=== PATIENT | male | born 1955 | race Caucasian/White ===

== ENCOUNTER → 2019-12-23 | Outpatient (CLI) | payer MEDICARE ==
[2019-12-23 12:18] LABS: ABSOLUTE EOSINOPHILS # (AUTO) 0.1 10^3/uL (0.0-0.6); ABSOLUTE LYMPHOCYTES (AUTO) 1.7 10^3/uL (0.5-4.7); ABSOLUTE MONOCYTES (AUTO) 0.9 10^3/uL (0.1-1.4); ABSOLUTE NEUT (AUTO) 4.9 10^3/uL (1.7-8.2); BASOPHILS % (AUTO) 0.4 % (0-2); EOSINOPHILS % (AUTO) 1.4 % (0-6); HEMATOCRIT 42.6 % (37.9-51.0); HEMOGLOBIN 14.8 g/dL (13.5-17.0); LYMPHOCYTES % (AUTO) 22.6 % (13-45); MEAN CORPUSCULAR HEMOGLOBIN 30.9 pg (27.0-33.4); MEAN CORPUSCULAR HGB CONC 34.6 g/dL (32.0-36.0); MEAN CORPUSCULAR VOLUME 89 fl (80-97); MONOCYTES % (AUTO) 11.3 % (3-13); PLATELET COUNT 219 10^3/uL (150-450); RED BLOOD COUNT 4.78 10^6/uL (4.35-5.55); RED CELL DISTRIBUTION WIDTH 13.7 % (11.5-14.0); SEGMENTED NEUTROPHILS % (AUTO) 64.3 % (42-78); TOTAL CELLS COUNTED % (AUTO) 100 %; WHITE BLOOD COUNT 7.6 10^3/uL (4.0-10.5)
[2019-12-23 12:49] LABS: ALBUMIN 4.3 g/dL (3.5-5.0); ALKALINE PHOSPHATASE 100 U/L (38-126); ANION GAP 11 (5-19); ASPARTATE AMINO TRANSFERASE 34 U/L (17-59); BILIRUBIN,DIRECT 0.4 mg/dL (0.0-0.4); BILIRUBIN,TOTAL 0.8 mg/dL (0.2-1.3); BLOOD UREA NITROGEN 16 mg/dL (7-20); C-REACTIVE PROTEIN 5.2 mg/L (<10.0); CALCIUM 9.5 mg/dL (8.4-10.2); CARBON DIOXIDE 29 mmol/L (22-30); CHLORIDE 101 mmol/L (98-107); GLUCOSE 97 mg/dL (75-110); POTASSIUM 4.8 mmol/L (3.6-5.0); TOTAL PROTEIN 7.9 g/dL (6.3-8.2)
[2019-12-23 12:57] LABS: ERYTHROCYTE SEDIMENTATION RATE 29 mm/hr (0-20)
--- NOTE | 2019-12-23 14:02 | RADIOLOGY REPORT (SQ) ---
EXAM DESCRIPTION: FOOT LEFT COMPLETE IMAGES COMPLETED DATE/TIME: 12/23/2019 1:44 pm REASON FOR STUDY: NON-PRS CHRONIC ULCER OTH PRT LEFT FOOT W FAT LAYER EXPOSED L97.522 NON-PRS CHRON IC ULCER OTH PRT LEFT FOOT W FAT LAYER COMPARISON: None. NUMBER OF VIEWS: Three views. TECHNIQUE: AP, lateral and oblique radiographic images acquired of the left foot. LIMITATIONS: None. FINDINGS: MINERALIZATION: Normal. BONES: No acute fracture or dislocation. No worrisome bone lesions. No evidence of osteomyelitis. JOINTS: No effusions. SOFT TISSUES: Soft tissue swelling adjacent to the 5th metatarsal-phalangeal joint. Soft tissue woun d. OTHER: No other significant finding. IMPRESSION: Soft tissue wound. No evidence of osteomyelitis. TECHNICAL DOCUMENTATION: JOB ID: [id number] 2010 [employer]- All Rights Reserved Reading location - IP/workstation name: [email or web address]
== END ==
LOC: OD 11:17
PROVIDERS: ATTEND Preventive Medicine Undersea and Hyperbaric Medicine
DX: L97.522 Non-pressure chronic ulcer of other part of left foot with fat layer exposed (principal)
CPT/HCPCS: 36415; 80053; 85025; 85652; 86140

== ENCOUNTER → 2020-01-05 | Outpatient (CLI) | payer MEDICARE ==
--- NOTE | 2020-01-06 13:59 | RADIOLOGY REPORT (SQ) ---
EXAM DESCRIPTION: ARTERIAL LOWER EXTREM BILAT IMAGES COMPLETED DATE/TIME: 01/05/2020 4:02 pm REASON FOR STUDY: LT FOOT ULCER L97.522 NON-PRS CHRONIC ULCER OTH PRT LEFT FOOT W FAT LAYER COMPARISON: None. TECHNIQUE: Dynamic and static forde scale and color images acquired of the lower extremity arteries. Additional selected spectral images recorded. ABIs recorded. LIMITATIONS: None. FINDINGS: RIGHT LEG: ABIS: Normal, over 1.0. INFLOW ARTERIES: Not imaged. FEMORAL ARTERIES:Multiphasic waveforms. Normal, no velocity elevation to suggest focal stenosis. Norm al color Doppler evaluation. No aneurysm. POPLITEAL ARTERY:Multiphasic waveforms. Normal, no velocity elevation to suggest focal stenosis. Norm al color Doppler evaluation. No aneurysm. PATENT TIBIOPERONEAL TRUNK AND 3 VESSEL RUNOFF: Yes, normal vessels. TBI: Not performed. OTHER: No other significant finding. LEFT LEG: ABIS: Normal, over 1.0. INFLOW ARTERIES: Not imaged. FEMORAL ARTERIES:Multiphasic waveforms. Normal, no velocity elevation to suggest focal stenosis. Norm al color Doppler evaluation. No aneurysm. POPLITEAL ARTERY:Multiphasic waveforms. Normal, no velocity elevation to suggest focal stenosis. Norm al color Doppler evaluation. No aneurysm. PATENT TIBIOPERONEAL TRUNK AND 3 VESSEL RUNOFF: Yes, normal vessels. TBI: Not performed. OTHER: No other significant finding. IMPRESSION: NORMAL BILATERAL LOWER EXTREMITY ARTERIAL DOPPLER WITH ABIs. COMMENT: [facility] NORMAL: Greater than 1.0 MINIMAL DISEASE: 0.9 to 1.0 CLAUDICATION: 0.5 to 0.9 SEVERE ARTERIAL DISEASE: Less than 0.5 [facility] NORMAL: Greater than 1.0 (1.2 If Heavy Calcifications) NORMAL TO MILD ISCHEMIA: 0.8 to 1.0 MODERATE ISCHEMIA: 0.4 to 0.8 SEVERE ISCHEMIA: Less than 0.4 TECHNICAL DOCUMENTATION: JOB ID: [id number] 2010 [employer]- All Rights Reserved Reading location - IP/workstation name: [email or web address]
== END ==
LOC: SP 14:45
PROVIDERS: ATTEND Preventive Medicine Undersea and Hyperbaric Medicine
DX: L97.522 Non-pressure chronic ulcer of other part of left foot with fat layer exposed (principal)
CPT/HCPCS: 93922; 93925

== ENCOUNTER → 2020-02-14 | Outpatient (CLI) | payer MEDICARE ==
[2020-02-14 17:40] LABS: ABSOLUTE BASOPHILS # (AUTO) 0.1 10^3/uL (0.0-0.2); ABSOLUTE EOSINOPHILS # (AUTO) 0.1 10^3/uL (0.0-0.6); ABSOLUTE LYMPHOCYTES (AUTO) 1.7 10^3/uL (0.5-4.7); ABSOLUTE MONOCYTES (AUTO) 1.6 10^3/uL (0.1-1.4); ABSOLUTE NEUT (AUTO) 9.7 10^3/uL (1.7-8.2); BASOPHILS % (AUTO) 0.5 % (0-2); EOSINOPHILS % (AUTO) 0.8 % (0-6); HEMATOCRIT 39.6 % (37.9-51.0); HEMOGLOBIN 13.7 g/dL (13.5-17.0); LYMPHOCYTES % (AUTO) 12.7 % (13-45); MEAN CORPUSCULAR HEMOGLOBIN 30.5 pg (27.0-33.4); MEAN CORPUSCULAR HGB CONC 34.5 g/dL (32.0-36.0); MEAN CORPUSCULAR VOLUME 88 fl (80-97); PLATELET COUNT 234 10^3/uL (150-450); RED BLOOD COUNT 4.48 10^6/uL (4.35-5.55); RED CELL DISTRIBUTION WIDTH 13.8 % (11.5-14.0); TOTAL CELLS COUNTED % (AUTO) 100 %; WHITE BLOOD COUNT 13.1 10^3/uL (4.0-10.5)
[2020-02-14 18:04] LABS: ALBUMIN 4.2 g/dL (3.5-5.0); ALKALINE PHOSPHATASE 77 U/L (38-126); ANION GAP 10 (5-19); ASPARTATE AMINO TRANSFERASE 22 U/L (17-59); BILIRUBIN,DIRECT 0.3 mg/dL (0.0-0.4); BLOOD UREA NITROGEN 20 mg/dL (7-20); C-REACTIVE PROTEIN 52.3 mg/L (<10.0); CALCIUM 9.7 mg/dL (8.4-10.2); CARBON DIOXIDE 30 mmol/L (22-30); CHLORIDE 99 mmol/L (98-107); GLUCOSE 115 mg/dL (75-110); POTASSIUM 4.5 mmol/L (3.6-5.0); TOTAL PROTEIN 7.7 g/dL (6.3-8.2)
[2020-02-14 18:28] LABS: ERYTHROCYTE SEDIMENTATION RATE 56 mm/hr (0-20)
--- NOTE | 2020-02-15 10:29 | RADIOLOGY REPORT (SQ) ---
EXAM DESCRIPTION: FOOT LEFT COMPLETE IMAGES COMPLETED DATE/TIME: 02/14/2020 5:26 pm REASON FOR STUDY: NON-PRS CHRONIC ULCER OTH PRT LEFT FOOT W NECROSIS OF MUSCLE L97.523 NON-PRS [employer] SAM ULCER OTH PRT LEFT FOOT W NECROSIS O COMPARISON: AP, oblique and lateral views of the left foot from 12/23/2019. NUMBER OF VIEWS: Three views. TECHNIQUE: AP, lateral and oblique radiographic images acquired of the left foot. LIMITATIONS: Evaluation is limited by the overlying bandage or soft cast material. FINDINGS: MINERALIZATION: Normal. BONES: There is a soft tissue defect adjacent to the 5th MTP joint; there is no associated erosion or periosteal formation. The 1st MTP joint is narrowed and on the oblique view there is a periarticula r cortical defect on the medial side of the distal 1st metatarsal that is unchanged. There is no acu te fracture. JOINTS: The normal tarsometatarsal alignment is preserved. SOFT TISSUES: See above. OTHER: No other findings. IMPRESSION: Soft tissue defect adjacent to the 5th MTP joint without associated erosion, periosteal formation or other radiographic evidence of an acute osteomyelitis. TECHNICAL DOCUMENTATION: JOB ID: [id number] 2010 [employer]- All Rights Reserved Reading location - IP/workstation name: [email or web address]
== END ==
LOC: WC 16:42
PROVIDERS: ATTEND Preventive Medicine Undersea and Hyperbaric Medicine
DX: L97.523 Non-pressure chronic ulcer of other part of left foot with necrosis of muscle (principal)
CPT/HCPCS: 36415; 80053; 85025; 85652; 86140

== ENCOUNTER → 2020-02-17 | Outpatient (CLI) | payer MEDICARE | LOC: WC 11:24 | PROVIDERS: ATTEND Preventive Medicine Undersea and Hyperbaric Medicine | DX: M10.9 Gout, unspecified (principal) | CPT/HCPCS: 36415; 84550 ==

== ENCOUNTER → 2020-02-18 | Outpatient (CLI) | payer MEDICARE ==
--- NOTE | 2020-02-19 14:11 | RADIOLOGY REPORT (SQ) ---
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 TECHNIQUE: Multiplanar imaging of the left forefoot to include T1-weighted, postcontrast T1-weighted , and T2-weighted images. CONTRAST TYPE AND DOSE: 20 mL Prohance. RENAL FUNCTION: Not indicated. ACR Type II contrast agent associated with few, if any, unconfounded cases of NSF LIMITATIONS: None. FINDINGS: BONE MARROW: Mild marrow edema throughout the shaft of the 5th metatarsal and in the proxi mal phalanx of the pinky toe. Fracture through the base of the pinky toe is not entirely excluded al meka its dorsal aspect. There is slight dorsal subluxation of the MP joint here. No aggressive erosi ons. Post gadolinium sequences show mild enhancement throughout the areas of marrow edema. Mild mar row edema in the proximal phalanx great toe. Minimal erosion along the plantar periarticular cortex is not excluded. SOFT TISSUES: Extensive skin thickening along the 5th MP joint with apparent skin defect consistent w ith wound and probable regional gas. No drainable abscess detected. No gross tendon disruption appr eciated. OTHER: No other significant finding. IMPRESSION: 1. Abnormal marrow edema as described. Mild base of 5th proximal phalanx pinky fracture is not exclu ded with slight dorsal subluxation. Otherwise, there is extensive regional soft tissue thickening an d inflammatory change but no drainable abscess. TECHNICAL DOCUMENTATION: JOB ID: [id number] 2010 [employer]- All Rights Reserved Reading location - IP/workstation name: [email or web address]
== END ==
LOC: RAD 16:23
PROVIDERS: ATTEND Preventive Medicine Undersea and Hyperbaric Medicine
DX: M10.072 Idiopathic gout, left ankle and foot (principal)
CPT/HCPCS: 73720; A9576

== ENCOUNTER → 2020-03-27 | Outpatient (CLI) | payer MEDICARE ==
[2020-03-27 15:24] LABS: ABSOLUTE BASOPHILS # (AUTO) 0.1 10^3/uL (0.0-0.2); ABSOLUTE EOSINOPHILS # (AUTO) 0.1 10^3/uL (0.0-0.6); ABSOLUTE LYMPHOCYTES (AUTO) 2.1 10^3/uL (0.5-4.7); ABSOLUTE MONOCYTES (AUTO) 0.8 10^3/uL (0.1-1.4); ABSOLUTE NEUT (AUTO) 7.6 10^3/uL (1.7-8.2); BASOPHILS % (AUTO) 0.6 % (0-2); EOSINOPHILS % (AUTO) 1.1 % (0-6); HEMATOCRIT 40.9 % (37.9-51.0); HEMOGLOBIN 14.4 g/dL (13.5-17.0); LYMPHOCYTES % (AUTO) 19.5 % (13-45); MEAN CORPUSCULAR HEMOGLOBIN 30.5 pg (27.0-33.4); MEAN CORPUSCULAR HGB CONC 35.2 g/dL (32.0-36.0); MEAN CORPUSCULAR VOLUME 87 fl (80-97); MONOCYTES % (AUTO) 7.7 % (3-13); PLATELET COUNT 230 10^3/uL (150-450); RED BLOOD COUNT 4.73 10^6/uL (4.35-5.55); RED CELL DISTRIBUTION WIDTH 13.3 % (11.5-14.0); SEGMENTED NEUTROPHILS % (AUTO) 71.1 % (42-78); TOTAL CELLS COUNTED % (AUTO) 100 %; WHITE BLOOD COUNT 10.7 10^3/uL (4.0-10.5)
--- NOTE | 2020-03-27 15:39 | RADIOLOGY REPORT (SQ) ---
EXAM DESCRIPTION: FOOT LEFT COMPLETE IMAGES COMPLETED DATE/TIME: 03/27/2020 3:05 pm REASON FOR STUDY: NON-PRS CHRONIC ULCER OTH PRT LEFT FOOT W FAT LAYER EXPOSED L97.522 NON-PRS CHRON IC ULCER OTH PRT LEFT FOOT W FAT LAYER COMPARISON: 02/14/2020 NUMBER OF VIEWS: Three views. TECHNIQUE: AP, lateral and oblique radiographic images acquired of the left foot. LIMITATIONS: None. FINDINGS: MINERALIZATION: Decreased mineralization. BONES: Interval cortical disruption along the lateral aspect of the distal 5th metatarsal from prior exam. No displaced fracture. Subluxation/dislocation at the 5th MTP joint. There is dorsal and med ial displacement of the proximal phalanx in relation to the distal metatarsal. There are multiple ad ditional degenerative changes with osteophytosis, joint space loss and subchondral sclerosis at scatt ered interphalangeal joints and the 1st MTP joint. Dorsal midfoot osteophytosis. JOINTS: As above. SOFT TISSUES: Soft tissue swelling about the lateral forefoot. Ulceration along the plantar lateral forefoot. OTHER: No other significant finding. IMPRESSION: 1. Interval cortical disruption along the distal 5th metatarsal compatible with osteomy elitis. 2. Subluxation/dislocation at the 5th MTP joint. Dorsal and medial displacement of the proximal pha lanx in relation to the distal 5th metatarsal. 3. Soft tissue swelling and ulceration along the lateral forefoot. TECHNICAL DOCUMENTATION: JOB ID: [id number] [employer]- All Rights Reserved Reading location - IP/workstation name: [id number]
[2020-03-27 15:50] LABS: ALKALINE PHOSPHATASE 75 U/L (38-126); ANION GAP 9 (5-19); ASPARTATE AMINO TRANSFERASE 39 U/L (17-59); BILIRUBIN,DIRECT 0.2 mg/dL (0.0-0.4); BILIRUBIN,TOTAL 0.6 mg/dL (0.2-1.3); BLOOD UREA NITROGEN 19 mg/dL (7-20); CALCIUM 9.5 mg/dL (8.4-10.2); CARBON DIOXIDE 29 mmol/L (22-30); CHLORIDE 102 mmol/L (98-107); GLUCOSE 103 mg/dL (75-110); POTASSIUM 4.5 mmol/L (3.6-5.0); TOTAL PROTEIN 7.3 g/dL (6.3-8.2)
[2020-03-27 15:54] LABS: C-REACTIVE PROTEIN < 5.0 mg/L (<10.0)
[2020-03-27 16:00] LABS: ERYTHROCYTE SEDIMENTATION RATE 26 mm/hr (0-20)
== END ==
LOC: RAD 14:41
PROVIDERS: ATTEND Preventive Medicine Undersea and Hyperbaric Medicine
DX: M86.072 Acute hematogenous osteomyelitis, left ankle and foot (principal); L97.522 Non-pressure chronic ulcer of other part of left foot with fat layer exposed
CPT/HCPCS: 36415; 80053; 85025; 85652; 86140

== ENCOUNTER → 2020-04-28 | Outpatient (CLI) | payer MEDICARE ==
[2020-04-28 14:42] LABS: ABSOLUTE BASOPHILS # (AUTO) 0.1 10^3/uL (0.0-0.2); ABSOLUTE EOSINOPHILS # (AUTO) 0.2 10^3/uL (0.0-0.6); ABSOLUTE LYMPHOCYTES (AUTO) 2.2 10^3/uL (0.5-4.7); ABSOLUTE MONOCYTES (AUTO) 1.1 10^3/uL (0.1-1.4); ABSOLUTE NEUT (AUTO) 5.9 10^3/uL (1.7-8.2); BASOPHILS % (AUTO) 0.6 % (0-2); EOSINOPHILS % (AUTO) 1.8 % (0-6); HEMATOCRIT 39.5 % (37.9-51.0); HEMOGLOBIN 13.3 g/dL (13.5-17.0); LYMPHOCYTES % (AUTO) 23.7 % (13-45); MEAN CORPUSCULAR HEMOGLOBIN 29.4 pg (27.0-33.4); MEAN CORPUSCULAR HGB CONC 33.6 g/dL (32.0-36.0); MEAN CORPUSCULAR VOLUME 88 fl (80-97); MONOCYTES % (AUTO) 11.7 % (3-13); PLATELET COUNT 210 10^3/uL (150-450); RED BLOOD COUNT 4.51 10^6/uL (4.35-5.55); SEGMENTED NEUTROPHILS % (AUTO) 62.2 % (42-78); TOTAL CELLS COUNTED % (AUTO) 100 %; WHITE BLOOD COUNT 9.5 10^3/uL (4.0-10.5)
[2020-04-28 15:09] LABS: ALBUMIN 3.7 g/dL (3.5-5.0); ALKALINE PHOSPHATASE 80 U/L (38-126); ANION GAP 7 (5-19); ASPARTATE AMINO TRANSFERASE 30 U/L (17-59); BILIRUBIN,DIRECT 0.2 mg/dL (0.0-0.4); BILIRUBIN,TOTAL 0.8 mg/dL (0.2-1.3); BLOOD UREA NITROGEN 17 mg/dL (7-20); C-REACTIVE PROTEIN 16.2 mg/L (<10.0); CALCIUM 9.1 mg/dL (8.4-10.2); CARBON DIOXIDE 28 mmol/L (22-30); CHLORIDE 101 mmol/L (98-107); GLUCOSE 99 mg/dL (75-110); POTASSIUM 4.5 mmol/L (3.6-5.0); TOTAL PROTEIN 6.9 g/dL (6.3-8.2)
[2020-04-28 15:18] LABS: ERYTHROCYTE SEDIMENTATION RATE 33 mm/hr (0-20)
--- NOTE | 2020-04-28 15:50 | RADIOLOGY REPORT (SQ) ---
EXAM DESCRIPTION: FOOT LEFT COMPLETE IMAGES COMPLETED DATE/TIME: 04/28/2020 2:02 pm REASON FOR STUDY: NON-PRS CHRONIC ULCER OTH PRT LEFT FOOT W FAT LAYER EXPOSED L97.522 NON-PRS CHRON IC ULCER OTH PRT LEFT FOOT W FAT LAYER COMPARISON: 03/27/2020 NUMBER OF VIEWS: Three views. TECHNIQUE: AP, lateral and oblique radiographic images acquired of the left foot. LIMITATIONS: None. FINDINGS: MINERALIZATION: Normal. BONES: Re- demonstration of erosion of the lateral aspect of the 5th metatarsal head with medial subl uxation of metatarsophalangeal joint. These findings appear mildly progressed relative to comparison imaging. No acute fracture. Background of diffuse degenerative changes. JOINTS: No effusions. SOFT TISSUES: Soft tissue bandaging overlies the lateral forefoot, obscuring the underlying structure s. OTHER: No other significant finding. IMPRESSION: Mild interval progression of cortical erosion of the 5th metatarsal head with medial sub luxation of the 5th metatarsal phalangeal joint. Findings are consistent with osteomyelitis. TECHNICAL DOCUMENTATION: JOB ID: [id number] [employer]- All Rights Reserved Reading location - IP/workstation name: [email or web address]
== END ==
LOC: RAD 13:45
PROVIDERS: ATTEND Preventive Medicine Undersea and Hyperbaric Medicine
DX: M86.8X7 Other osteomyelitis, ankle and foot (principal); L97.522 Non-pressure chronic ulcer of other part of left foot with fat layer exposed
CPT/HCPCS: 36415; 80053; 85025; 85652; 86140